=== PATIENT | female | born 1965 | race Caucasian/White ===

== ENCOUNTER → 2023-06-15 09:59 | Outpatient (REF) | payer BC, SELFPAY | LOC: HWRAD 09:59 | PROVIDERS: ATTENDING PHYSICIAN Nurse Practitioner Family | DX: M25.511 Pain in right shoulder (principal) | CPT/HCPCS: 73030 ==

== ENCOUNTER → 2023-06-24 13:17 | Outpatient (REF) | payer BC, SELFPAY | LOC: RAD 13:17 | PROVIDERS: ATTENDING PHYSICIAN Nurse Practitioner Family | DX: R07.81 Pleurodynia (principal) | CPT/HCPCS: 71101 ==

== ENCOUNTER → 2023-10-04 07:44 | Outpatient (REF) | payer BC, SELFPAY | LOC: HWRAD 07:44 | PROVIDERS: ATTENDING PHYSICIAN Internal Medicine Endocrinology, Diabetes & Metabolism; FAMILY PHYSICIAN Nurse Practitioner Family | DX: E06.3 Autoimmune thyroiditis (principal); E04.0 Nontoxic diffuse goiter | CPT/HCPCS: 76536 ==

== ENCOUNTER → 2023-12-10 13:55 | Outpatient (REF) | payer BC, SELFPAY | LOC: HWRAD 13:55 | PROVIDERS: ATTENDING PHYSICIAN Obstetrics & Gynecology; FAMILY PHYSICIAN Nurse Practitioner Family | DX: N95.0 Postmenopausal bleeding (principal) | CPT/HCPCS: 76830; 76856 ==

== ENCOUNTER → 2024-03-27 11:38 | Outpatient (REF) | payer BC, SELFPAY | LOC: WDC 11:38 | PROVIDERS: ATTENDING PHYSICIAN Obstetrics & Gynecology; FAMILY PHYSICIAN Nurse Practitioner Family | DX: Z12.31 Encounter for screening mammogram for malignant neoplasm of breast (principal) | CPT/HCPCS: 77063; 77067 ==

== ENCOUNTER 2024-05-16 06:26 | Day surgery (SDC) | payer BC, SELFPAY ==
[2024-05-10 08:48] LABS: % Basophils 0.5 % (0-2); % Eosinophils 3.8 % (0-6); % Immature Granulocytes 0.3 % (0-0.5); % Lymphocytes 38.8 % (20.5-51.1); % Monocytes 7.9 % (1.7-9.3); % Neutrophils 48.7 % (42.2-75.2); Absolute Eosinophils 0.1 10^3/uL (0-0.7); Absolute Lymphocytes 1.4 10^3/uL (1.2-3.4); Absolute Monocytes 0.3 10^3/uL (0.1-0.6); Absolute Neutrophils 1.8 10^3/uL (1.4-6.5); Hematocrit 35.5 % (37.0-47.0); Hemoglobin 11.8 g/dL (12.0-16.0); Mean Corp Hgb Conc. 33.2 g/dL (33.0-37.0); Mean Corpuscular Hgb 31.4 pg (27.0-31.0); Mean Corpuscular Volume 94.4 fL (81.0-99.0); Mean Platelet Volume 9.3 fL (7.4-10.4); Nucleated Red Blood Cells % 0 %; Platelet Count 308 10^3/uL (130-400); Red Blood Cell Count 3.76 10^6/uL (4.20-5.40); White Blood Cell Count 3.7 10^3/uL (4.8-10.8)
[2024-05-10 09:21] LABS: Blood Urea Nitrogen 21 mg/dl (7-17); Calcium 9.9 mg/dl (8.4-10.2); Carbon Dioxide 31 mmol/L (22-30); Chloride 100 mmol/L (98-107); Glucose 97 mg/dl (70-99); Potassium 4.7 mmol/L (3.5-5.1); Sodium 138 mmol/L (135-145); eGFR > 60.00
[2024-05-10 13:34] VITALS: BMI 26.3
[2024-05-16] VITALS (8 sets, daily range): BP systolic 115–130; BP diastolic 28–68; BMI 26.3
--- NOTE | 2024-05-16 10:08 | W.IMMPOSTOP ---
Surgical Immed Post Op Note
-
Primary Surgeon: Nilsa Sahu DO
Assisting Surgeon: n/a
Pre-op Diagnosis: Postmenopausal bleeding
Post-op Diagnosis: same, endometrial adhesions
Procedure Performed: Hysteroscopy D&C
Anesthesia Type: general LMA Dr. Sanon
Specimen / Cultures: 1. endocervical curettings 2. endometrial curettings
Estimated Blood Loss: 2ml
Complications: none
Fluid deficit: 95ml NSS
Operative Findings: Uterus sounded to 5cm; endometrial adhesions obscuring tubal ostia. No obvious mass. Insufficient evaluation due to adhesions.
Counts correct times 2.
Stable to recovery.
== END 2024-05-16 11:40 | disposition home or self-care (01) ==
LOC: SDS 06:26
PROVIDERS: ATTENDING PHYSICIAN Obstetrics & Gynecology; FAMILY PHYSICIAN Nurse Practitioner Family
DX: N95.0 Postmenopausal bleeding (principal); N85.00 Endometrial hyperplasia, unspecified
CPT/HCPCS: 58558; 88305; 36415; 80048; 85025; 88341; 88342; 93005

== ENCOUNTER → 2024-08-03 08:53 | Outpatient (REF) | payer BC, SELFPAY | LOC: HWRAD 08:53 | PROVIDERS: ATTENDING PHYSICIAN Nurse Practitioner Family | DX: R10.11 Right upper quadrant pain (principal) | CPT/HCPCS: 76700 ==

== ENCOUNTER → 2024-08-15 18:26 | Outpatient (REF) | payer BC, SELFPAY | LOC: MRI 3T 18:26 | PROVIDERS: ATTENDING PHYSICIAN Obstetrics & Gynecology; FAMILY PHYSICIAN Nurse Practitioner Family | DX: N95.0 Postmenopausal bleeding (principal) | CPT/HCPCS: 72197; A9575 ==

== ENCOUNTER → 2024-11-15 09:47 | Outpatient (REF) | payer BC, SELFPAY | LOC: HWRAD 09:47 | PROVIDERS: ATTENDING PHYSICIAN Internal Medicine Endocrinology, Diabetes & Metabolism; FAMILY PHYSICIAN Nurse Practitioner Family | DX: E04.0 Nontoxic diffuse goiter (principal) | CPT/HCPCS: 76536 ==

== ENCOUNTER 2024-12-08 05:48 | Day surgery (SDC) | payer BC, SELFPAY ==
[2024-11-22 08:53] LABS: Hematocrit 34.5 % (37.0-47.0); Hemoglobin 11.4 g/dL (12.0-16.0); Mean Corp Hgb Conc. 33.0 g/dL (33.0-37.0); Mean Corpuscular Volume 95.8 fL (81.0-99.0); Platelet Count 319 10^3/uL (130-400); Red Cell Dist. Width 14.6 % (11.5-14.5)
[2024-11-22 09:55] LABS: Beta HCG Quantitative < 2.39 mIU/ml
[2024-11-22 10:12] LABS: Blood Urea Nitrogen 19 mg/dl (7-17); Calcium 9.4 mg/dl (8.4-10.2); Carbon Dioxide 29 mmol/L (22-30); Chloride 106 mmol/L (98-107); Glucose 88 mg/dl (70-99); Potassium 4.6 mmol/L (3.5-5.1); Sodium 140 mmol/L (135-145); eGFR > 60.00
[2024-11-22 13:48] VITALS: BMI 25.2
[2024-12-08] VITALS (16 sets, daily range): BP systolic 102–127; BP diastolic 54–68; BMI 25.2
[2024-12-08] MEDS: TYLENOL 1000 MG PO (06:28)
[2024-12-08] MEDS: NEURONTIN 300 MG PO (06:28)
[2024-12-08] MEDS: NORMOSOL-R/PLASMALYTE-A 1000 IV (06:29)
--- NOTE | 2024-12-08 09:03 | W.IMMPOSTOP ---
Surgical Immed Post Op Note
-
Primary Surgeon: Nilsa Sahu DO
Assistants: LUZ Vazquez and TYRA Peterson
Pre-op Diagnosis: Recurrent postmenopausal bleeding; adenomyosis
Post-op Diagnosis: same
Procedure Performed: Robotic total laparoscopic hysterectomy, bilateral salpingo-oopherectomy
Anesthesia Type: general ET Dr. [place]ri[place]
Specimen / Cultures: uterus, cervix and bilateral fallopian tubes and ovaries
Estimated Blood Loss: 5mL
IVFluid: 700mL crystalloid soln
Urine output: 150mL clear yellow
Complications: none
Operative Findings: Uterus globular shaped c/w adenomyosis. Atrophic but otherwise normal ovaries bilaterally. Normal appearing tubes.
Counts correct times 2.
Stable to recovery.
[2024-12-08] MEDS: DILAUDID 0.5 MG IV ×2 (09:45→10:06)
== END 2024-12-08 12:34 | disposition home or self-care (01) ==
LOC: SDS 05:48
PROVIDERS: ATTENDING PHYSICIAN Obstetrics & Gynecology; FAMILY PHYSICIAN Nurse Practitioner Family
DX: N80.03 Adenomyosis of the uterus (principal); N95.0 Postmenopausal bleeding
CPT/HCPCS: 58571; 36415; 80048; 84702; 85027; 86850; 86900; 86901; 88307; 93005

== ENCOUNTER 2025-01-22 06:28 | Day surgery (SDC) | payer BC, SELFPAY | END 2025-01-22 10:19 | disposition home or self-care (01) | LOC: GI 06:28 | PROVIDERS: ATTENDING PHYSICIAN Internal Medicine | DX: R12 Heartburn (principal); K44.9 Diaphragmatic hernia without obstruction or gangrene; K31.89 Other diseases of stomach and duodenum; K20.90 Esophagitis, unspecified without bleeding; Z80.0 Family history of malignant neoplasm of digestive organs | CPT/HCPCS: 43239; 88305; 88342 ==